=== PATIENT | female | born 1980 | race Caucasian/White ===

== ENCOUNTER → 2017-07-14 15:21 | Outpatient (CLI) | payer OTHER, SELFPAY ==
[2017-07-14 17:01] LABS: Color, Urine Yellow (Yellow); Glucose, Dipstick Normal (Normal); Ketone-Dipstick Negative (Negative); Leukocyte Esterase-Dipstick 100 /ul (Negative); Nitrite-Dipstick Negative (Negative); Occult Blood-Urine 10 /ul (Negative); Protein-Dipstick 15 mg/dl (Negative); Urine Bilirubin Dipstick Negative (Negative); Urine Clarity Clear (Clear); Urine Urobilinogen Normal (Normal)
[2017-07-14 17:10] LABS: Amphetamine Urine VISTA NEGATIVE (<1000 ng/mL); Barbiturate Urine VISTA NEGATIVE (< 200 ng/mL); Benzodiazepine Urine VISTA NEGATIVE (< 200 ng/mL); Cocaine Urine VISTA NEGATIVE (< 300 ng/mL); Ecstacy Urine VISTA NEGATIVE (< 500 ng/mL); Methadone Urine VISTA NEGATIVE (< 300 ng/mL); PCP Urine VISTA NEGATIVE (< 25 ng/mL); THC Urine VISTA NEGATIVE (< 50 ng/mL); Vista UDS pH Range 6
[2017-07-14 17:13] LABS: COTININE Drug Screen Negative (<200 ng/mL)
[2017-07-14 17:35] LABS: Absolute Lymphocyte Count 1.36 X10^3/ul (0.83-4.51); Absolute Neutrophil Count 5.1 X10^3/uL (2.0-7.7); Basophil# 0.01 X10^3/uL; Basophil% 0.1 % (0-1); Eosinophil# 0.04 X10^3/uL; Eosinophils% 0.6 % (0-5); Hematocrit 38.5 % (37-47); Hemoglobin 12.5 g/dl (12.0-15.0); Lymphocyte # 1.36 X10^3/ul (4.0); Lymphocyte % 19.8 % (19-41); Mean Corp Hgb Conc 32.5 g/gl (32-36); Mean Corpuscular Hgb 26.2 pg (27.0-32.0); Mean Corpuscular Volume 80.5 fL (81-99); Mean Platelet Vol. 8.8 fl (6.2-12.0); Monocyte% 5.8 % (0-10); Neutrophil # 5.05 X10^3/uL (2.7-7.7); Neutrophil % 73.6 % (47-70); Platelet Count 218 K/mm3 (150-450); RBC Distribution Width CV 14.7 % (11.6-14.6); RBC Distribution Width SD 43.3 fl (35.1-43.9); Red Blood Count 4.78 M/mm3 (4.2-5.4); White Blood Count 6.9 K/mm3 (4.4-11.0)
[2017-07-14 17:36] LABS: POSITIVE COUNT NO; POSITIVE DIFFERENTIAL NO; POSITIVE MORPHOLOGY NO
[2017-07-14 17:48] LABS: Thyroid Stim Hormone (TSH) 0.63 uIU/mL (0.358-3.74)
[2017-07-14 18:48] LABS: HIV - WCH Non-Reactive (Nonreactive); Rubella IgG 110.8 IU/mL
[2017-07-18 10:29] LABS: HEPATITIS B SURFACE AG Negative (Negative); Hep C Antibodies 0.1 s/co ratio (0.0-0.9)
[2017-07-21 03:55] LABS: Prenatal RPR NONREACTIVE (NONREACTIVE)
== END ==
PROVIDERS: Visit Provider Obstetrics & Gynecology
DX: Z34.81 Encounter for supervision of other normal pregnancy, first trimester (principal)
CPT/HCPCS: 36415; 80307; 81002; 84443; 85025; 86703; 86762; 86803; 87340

== ENCOUNTER → 2017-11-24 14:17 | Outpatient (CLI) | payer OTHER, SELFPAY ==
--- NOTE | 2017-11-24 14:17 | DT_ITS ---
This patient was seen during an EMR downtime November 20, 2017 - November 27, 2017. This patient may have a combination of paper and electronic documentation or all paper documentation. All documentation is viewable within the e-chart portion of [employer] for each patient visit.
[2017-11-27 18:18] LABS: Hematocrit 32.3 % (37-47); Hemoglobin 10.5 g/dl (12.0-15.0); Mean Corp Hgb Conc 32.5 g/gl (32-36); Mean Corpuscular Hgb 28.2 pg (27.0-32.0); Mean Corpuscular Volume 86.8 fL (81-99); Mean Platelet Vol. 8.7 fl (6.2-12.0); Platelet Count 230 K/mm3 (150-450); RBC Distribution Width CV 13.9 % (11.6-14.6); RBC Distribution Width SD 42.5 fl (35.1-43.9); Red Blood Count 3.72 M/mm3 (4.2-5.4); Scan Indicated on CBC? Y/N NO; White Blood Count 9.6 K/mm3 (4.4-11.0)
[2017-11-28 15:58] LABS: Glucose Challenge Gest 1H 50g 108 mg/dL (70-140)
== END ==
PROVIDERS: Visit Provider Obstetrics & Gynecology
DX: Z34.83 Encounter for supervision of other normal pregnancy, third trimester (principal)
CPT/HCPCS: 36415; 82950; 85027; 86850

== ENCOUNTER → 2018-01-19 13:12 | Outpatient (CLI) | payer OTHER, SELFPAY ==
[2018-01-19 15:18] LABS: Group B Strep DNA By PCR POSITIVE (Negative); Probe Check PASS
== END ==
PROVIDERS: PCP Obstetrics & Gynecology; Visit Provider Obstetrics & Gynecology
DX: Z36.85 Encounter for antenatal screening for Streptococcus B (principal)
CPT/HCPCS: 87653

== ENCOUNTER 2018-02-09 16:30 | Inpatient (IN) | payer OTHER, SELFPAY ==
[2018-02-09 17:20] VITALS: BMI 36.5
[2018-02-09 17:27] LABS: Hematocrit 35.1 % (37-47); Hemoglobin 11.6 g/dl (12.0-15.0); Mean Corpuscular Hgb 28.2 pg (27.0-32.0); Mean Corpuscular Volume 85.2 fL (81-99); Mean Platelet Vol. 9.3 fl (6.2-12.0); Platelet Count 174 K/mm3 (150-450); RBC Distribution Width CV 15.1 % (11.6-14.6); RBC Distribution Width SD 47.1 fl (35.1-43.9); Red Blood Count 4.12 M/mm3 (4.2-5.4); White Blood Count 8.7 K/mm3 (4.4-11.0)
[2018-02-09 17:37] LABS: AST(SGOT) 55 U/L (15-37); Alanine Aminotransfer ALT/SGPT 23 U/L (13-56); Creatinine, Serum 0.72 mg/dL (0.55-1.02); EST Glomerular Filtration Rate 98 mL/min (>60); Est Glom Filt Rate - Afr Amer 119 mL/min (>60); Estimated Creatinine Clearance 110.01 ml/min; Uric Acid 4.8 mg/dL (2.6-6.0)
[2018-02-09 18:08] LABS: Scan Indicated on CBC? Y/N NO
[2018-02-09] MEDS: miSOPROStol 25 MCG TABLET PO ×2 (18:17→22:03)
[2018-02-09 18:30] LABS: Protein, Urine (Random) 29.5 mg/dL (<11.9); Protein:Creat Ratio 409 mg/g CRE (0-200)
[2018-02-09 18:47] LABS: Prothrombin Time (Protime)PT. 13.2 SECONDS (11.7-14.9)
[2018-02-09] MEDS: Lactated Ringers 1,000 ML 50 ML IV (19:20)
[2018-02-09] MEDS: Labetalol 200 MG Tablet PO (21:58)
[2018-02-10] VITALS (21 sets, daily range): BP systolic 108–144; BP diastolic 65–98; PULSE 61–92; RESP 16–20; TEMP 36.4–36.7; O2SAT 97–100
[2018-02-10] MEDS: miSOPROStol 25 MCG TABLET PO ×2 (02:33→06:18)
[2018-02-10] MEDS: Cefazolin 2 GM in 0.9% Normal Saline 100 ML IV (07:55)
[2018-02-10] MEDS: Sodium Citrate/Citric Acid 30 ML UDC PO (07:58)
[2018-02-10] MEDS: Oxytocin 30 units/NS 500 ml 30 UNITS/500 ML IV.SOLN 167 UNITS IV (08:13)
[2018-02-10] MEDS: Ondansetron 4 MG/2 ML Vial IV (08:28)
--- NOTE | 2018-02-10 08:54 | PCM.OP.BLANK ---
Operative Report Date of Procedure: 02/10/18 Surgeon: Kurt Rose MD, FACOG [employer] Consultant: Koki Aponte RN; ANUEL Christian Anesthesia: Karen Godinez MD; Luis F Polk CRNA Anesthesia: Spinal with Duramorph Pre-op Diagnosis: Gestational Hypertension, Not Reassuring Heart Tones Post-Op Diagnosis: Gestational Hypertension, Not Reassuring Heart Tones, Cord Entanglement Procedure: Emergency Primary Low Transverse Cervical Caesarean Section Findings: Viable female with Apgars of 9/10 in occiput anterior presentation with clear amniotic fluid and normal three-vessel placenta. Long umbilical cord. Multiple loops of cord around the neck, approximately 3. Cord around the legs and body. Indication: This is a 37-year-old who presents for induction for gestational hypertension. She was given Cytotec during the night for an unfavorable cervix and this morning artificial rupture of membranes was performed. She was approximately 2-3 cm dilated and 50% effaced with -2--3 station at the time of rupture. After rupture of membranes and placement of intrauterine pressure catheter, multiple late decelerations were encountered. These decelerations were extremely deep and showed no evidence of abating. Given this it was decided to proceed with primary section for nonreassuring heart tones. care has otherwise been uneventful and she is on labetalol twice daily for blood pressure control. The patient and her have been counseled regarding the risk and indications of this procedure including the possibility of bleeding infection and injury to surrounding structures such as bowel bladder. All questions were answered. Procedure: Patient was taken to the operating room where heart tones were noted to be in the 120s and 130s. It was felt that there was adequate time to place spinal anesthesia. After spinal anesthesia was placed, the patient was prepped and draped in usual sterile fashion and a Hess catheter was placed. The abdomen was entered through a Pfannenstiel incision and peritoneum was entered bluntly. After developing a bladder flap on the lower uterine segment a low transverse incision was made on the uterus and head was easily delivered onto the operative field the nose mouth and oropharynx were bulb suctioned. Subsequently a viable female infant was born with Apgars of 9/10. The was noted to cry move all extremities vigorously on the operative field. The umbilical cord was doubly clamped and ligated and infant handed to the nursery personnel who were present for the delivery. Placenta was delivered and noted to be 3 vessels and normal with cord entanglement as noted above. Uterus was exteriorized and remaining placental tissue was removed. The uterus was then closed in 2 layers first with running locked 0 Vicryl suture followed by a second imbricating layer with 0 Vicryl suture. 0 Vicryl suture was then used in a horizontal mattress interrupted fashion to affect final hemostasis of the uterine incision line. Normal fallopian tubes and ovaries were visualized and the uterus was returned to the pelvis. Hemostasis was noted and rectus abdominis muscles were reapproximated in the midline with interrupted Number 0 Vicryl suture in a horizontal mattress fashion. Fascia was closed with running Number 1 PDS Strata fix suture. Subcutaneous tissue was irrigated with copious amouts of saline solution and then closed with running 3-0 Vicryl suture. Skin was closed with 4-0 monocryl suture in a running subcuticular fashion. Steri strips, telfa, and tape were placed across the incision. Time from decision to proceed with section to delivery was approximately 15 minutes. The patient tolerated the procedure well and was taken to the recovery room in satisfactory condition. Sponge, needle, and instrument counts were all reportedly correct. EBL was less than 500 cc. Ancef 2 gms IV was given prior to the procedure. Spicemen to Pathology: None Complications: None
--- NOTE | 2018-02-10 09:06 | PCM.DCCSEC ---
Discharge Diet: No Restrictions Discharge Activity: May not drive while taking narcotic pain medications., May Shower, May Take a Tub Bath May resume sexual activity in: 4-6 weeks Lifting Restrictions: 20 pounds Additional Activity Instructions:: Nothing in the vagina for 4-6 weeks. You may return to work/school in 6 weeks. Call your doctor if your incision/area has: Continuous Slow Oozing, Sudden Increased Bleeding, Increased Pain/ Swelling, Increased Redness, Foul Smelling Discharge Call your doctor if you observe: Fever of 101 or Higher, Inability to urinate, Inability to have a bowel movement, Using more than one pad per hour Additional Instructions: If you experience any of the following, contact your healthcare provider. Bleeding that soaks a pad every hour for 2 hours Unrelieved incision or abdominal pain Swelling, redness, discharge or bleeding from your incision or episiotomy site Your incision begins to separate Problems urinating (including inability to urinate or burning while urinating). Visual changes Severe headache Flu-like symptoms Pain or redness in one of both of your breasts Pain, warmth, tenderness or swelling in your legs, especially the calf area Frequent nausea and vomiting Symptoms of depression or anxiety If you experience any of the following, call 911 or go to the nearest Emergency Room. Chest pain Problems breathing Seizure activity Partial or complete paralysis of a body part, slurred speech, weakness or drooping of the face, or a sudden inability to walk or hold your balance Allergies/Adverse Reactions: Allergies No Known Allergies Allergy (Verified 02/09/18 17:21) Medications to take at Discharge Ferrous Sulfate [Iron] 1 tab PO BID 02/09/18 Labetalol [Trandate (Beta Teagan)] 200 mg PO BID 02/09/18 Vits [Prenatabs FA ] 1 tab PO DAILY 02/09/18 Docusate Sodium [Colace] 100 mg PO BID PRN PRN #60 cap 02/10/18 Oxycodone [Oxyir] 5 mg PO Q6H PRN PRN 7 Days #20 tab 02/10/18 The following prescriptions were given: Oxycodone [Oxyir] 5 mg PO Q6H PRN PRN 7 Days #20 tab PRN Reason: Severe Pain (-03/28) Docusate Sodium [Colace] 100 mg PO BID PRN PRN #60 cap PRN Reason: Constipation Follow-Up: Call to make an appointment with your doctor for an incision check in 1-2 weeks. You will also need a 6 week post- follow up appointment. Test results from this visit will be discussed in further detail at your follow-up appointment, if applicable. Please Follow Up With: Mike Daley MD When: Call to make an appointment for an incision check in 2 weeks. Primary Care Physician: Andriy Maria MD [Primary Care Provider] -
[2018-02-10] MEDS: Lactated Ringers 1,000 ML 999 ML IV (11:10)
[2018-02-10] MEDS: Lactated Ringers 1,000 ML 100 ML IV ×2 (11:19→20:56)
[2018-02-10] MEDS: Labetalol 200 MG Tablet PO ×2 (12:32→21:00)
[2018-02-10] MEDS: Ketorolac 30 MG/ML Syringe IV ×2 (13:31→17:46)
[2018-02-10] MEDS: Cefazolin 1 GM/50 ML BAG IV (16:14)
[2018-02-10] MEDS: Ondansetron ODT 4 MG Tablet PO (17:46)
[2018-02-11] VITALS (9 sets, daily range): BP systolic 103–139; BP diastolic 57–88; PULSE 64–80; RESP 16–18; TEMP 36.2–36.8; O2SAT 97–100
[2018-02-11] MEDS: Ketorolac 30 MG/ML Syringe IV ×4 (01:08→18:07)
[2018-02-11] MEDS: Cefazolin 1 GM/50 ML BAG IV (01:08)
[2018-02-11 05:58] LABS: Hematocrit 29.8 % (37-47); Mean Corp Hgb Conc 33.6 g/gl (32-36); Mean Corpuscular Volume 86.4 fL (81-99); Mean Platelet Vol. 8.8 fl (6.2-12.0); Platelet Count 155 K/mm3 (150-450); RBC Distribution Width SD 45.3 fl (35.1-43.9); Red Blood Count 3.45 M/mm3 (4.2-5.4); White Blood Count 10.3 K/mm3 (4.4-11.0)
[2018-02-11 06:07] LABS: Scan Indicated on CBC? Y/N NO
--- NOTE | 2018-02-11 11:07 | PCM.PN.OB ---
Subjective: Patient without complaints. Tolerating diet well. Positive flatus. Breast-feeding going well. Pain well controlled. - Physical Exam Vital Signs AF, VSS Temp Pulse Resp BP Pulse Ox 97.3 F L 78 16 108/66 97 02/11/18 08:00 02/11/18 08:00 02/11/18 08:00 02/11/18 08:00 02/11/18 08:00 Oxygen Delivery Method Room Air Weight: 240 lb Body Mass Index (BMI) 36.5 Intake and Output for Last 24 Hours 02/09/18 02/10/18 02/11/18 23:59 23:59 23:59 Intake Total 3940 / 3940 1491 / 1491 Output Total 750 / 750 1300 / 1300 Balance 3190 / 3190 191 / 191 Laboratory Tests Past 24 Hrs 02/11/18 05:36 WBC 10.3 RBC 3.45 L Hgb 10.0 L Hct 29.8 L MCV 86.4 MCH 29.0 MCHC 33.6 RDW 15.0 H RDW Differential 45.3 H Plt Count 155 MPV 8.8 Wound is clean, dry, intact. Good urine output. Hemoglobin okay. Medical Necessity - Tobacco Use Smoking Status: Never smoker Assessment/Plan Doing well status post op day #1 for primary . Continuing present care.
[2018-02-11] MEDS: 0.9% Saline Lock 10 ML Syringe IV ×2 (11:57→18:07)
[2018-02-11] MEDS: Labetalol 200 MG Tablet PO ×2 (11:58→22:10)
[2018-02-12] MEDS: Ketorolac 30 MG/ML Syringe IV ×2 (00:09→06:33)
[2018-02-12] MEDS: 0.9% Saline Lock 10 ML Syringe IV ×2 (00:09→06:34)
[2018-02-12 03:30] VITALS: BP 148/89; PULSE 84; RESP 16; TEMP 36.3
--- NOTE | 2018-02-12 07:41 | PCM.PN.OB ---
Subjective: Patient without complaints. Tolerating diet well. Positive flatus. Pain well controlled. Ready to go home. - Physical Exam Vital Signs Temp Pulse Resp BP Pulse Ox 97.3 F L 84 16 148/89 H 97 02/12/18 03:30 02/12/18 03:30 02/12/18 03:30 02/12/18 03:30 02/11/18 13:31 Oxygen Delivery Method Room Air Weight: 240 lb Body Mass Index (BMI) 36.5 Intake and Output for Last 24 Hours 02/10/18 02/11/18 02/12/18 23:59 23:59 23:59 Intake Total 3940 / 3940 1491 / 1491 Output Total 750 / 750 2300 / 2300 Balance 3190 / 3190 -809 / -809 Wound is clean, dry, intact. Good urine output. Medical Necessity - Tobacco Use Smoking Status: Never smoker Assessment/Plan Doing well postoperative day #2 status post primary section. Will release to home with routine instructions.
[2018-02-12 08:50] VITALS: BP 143/91; PULSE 74; RESP 16; TEMP 36.5; O2SAT 98
[2018-02-12] MEDS: Labetalol 200 MG Tablet PO ×2 (09:49→18:08)
[2018-02-12] MEDS: Senna/Docusate Sodium 1 Tablet PO (13:14)
[2018-02-12 13:23] VITALS: BP 135/85; PULSE 87; RESP 16; TEMP 36.7; O2SAT 96
[2018-02-12] MEDS: oxyCODONE 5 MG Tablet PO (16:29)
[2018-02-12 16:31] VITALS: BP 155/99; PULSE 75; RESP 16; TEMP 36.7; O2SAT 98
--- NOTE | 2018-02-12 17:31 | NURSING ---
1635 This RN called to pt room per ACole RN and made aware pt c/o generalized chest discomfort. Denies SOB but states pain is also occas. in back. VS: 177/102, 98.1 temp, pulse 73, resp 20, pulse ox 98%. Pt uncrossed legs and rechecked BP was 155/99. At 1647, cont. to report discomfort but states it is possibly getting better. BP 162/98 SFR, pulse ox 98%, resp 20. Dr. Rose made aware and will cancel discharge with continued BP monitoring overnight. Pt. denies vision changes and headache, stating pain is still in back and feels like acid indigestion or reflux. 1652 BP 160/92 and at 1711 BP is 159/95. Dr. Rose declines HTN protocol at this time but will see how her BP's trend this evening.
[2018-02-12] MEDS: Ketorolac 30 MG/ML Syringe IM (18:07)
[2018-02-12] MEDS: Famotidine 20 MG Tablet PO (18:08)
--- NOTE | 2018-02-12 19:32 | NURSING ---
Pt. blood pressure checks 172/100 then 165/99. Dr. Rose in to see pt. ordered labetalol time adjustment, pepcid, and IM toradol. Pt. blood pressure checks after interventions were 145/88 and 136/84. Pt. states her pain is down to a 2 and she is feeling much better.
[2018-02-12 19:59] VITALS: BP 143/84; PULSE 87; RESP 18; TEMP 36.6; O2SAT 96
[2018-02-13 02:31] VITALS: BP 132/93; PULSE 82; RESP 18; TEMP 36.6; O2SAT 97
[2018-02-13] MEDS: Ibuprofen 600 MG Tablet PO (02:36)
[2018-02-13] MEDS: oxyCODONE 5 MG Tablet PO (04:01)
[2018-02-13] MEDS: Labetalol 200 MG Tablet PO (06:16)
[2018-02-13 06:17] VITALS: BP 129/85
[2018-02-13 08:00] VITALS: BP 147/91; PULSE 79; RESP 16; TEMP 36.8
--- NOTE | 2018-02-13 08:48 | PCM.PN.OB ---
Subjective: Patient without complaints. Tolerating diet well. Pain well controlled after restarting NSAIDs. No blood pressure issues overnight. - Physical Exam Vital Signs Temp Pulse Resp BP Pulse Ox 97.9 F 82 18 129/85 H 97 02/13/18 02:31 02/13/18 02:31 02/13/18 02:31 02/13/18 06:17 02/13/18 02:31 Oxygen Delivery Method Room Air Weight: 240 lb Body Mass Index (BMI) 36.5 Intake and Output for Last 24 Hours 02/11/18 02/12/18 02/13/18 23:59 23:59 23:59 Intake Total 1491 / 1491 Output Total 2300 / 2300 Balance -809 / -809 Medical Necessity - Tobacco Use Smoking Status: Never smoker Assessment/Plan Doing well postoperative day #3 status post primary section. Will release to home with routine instructions. Continuing labetalol as prior to admission.
--- NOTE | 2018-02-13 08:50 | PCM.DC.BLA ---
Discharge Summary Date of Admission: 02/09/18 Date of Discharge: 02/13/18 Summary: Admission diagnosis: Gestational Hypertension Discharge diagnosis: Gestational Hypertension, Not Reassuring Heart Tones, Cord Entanglement Procedure: Emergency Primary Low Transverse Cervical Caesarean Section Findings: Viable female infant with Apgars of 9/10 in occiput anterior presentation with clear amniotic fluid and normal three-vessel placenta. Long umbilical cord. Multiple loops of cord around the neck, approximately 3. Cord around the legs and body. History of present illness: This is a 37-year-old who presented for induction for gestational hypertension. She was given Cytotec for an unfavorable cervix and artificial rupture of membranes was performed. She was approximately 2-3 cm dilated and 50% effaced with -2--3 station at the time of rupture. After rupture of membranes and placement of intrauterine pressure catheter, multiple late decelerations were encountered. These decelerations were extremely deep and showed no evidence of abating. Given this it was decided to proceed with primary section for nonreassuring heart tones. care has otherwise been uneventful and she is on labetalol twice daily for blood pressure control. Physical exam: Unremarkable except as above. Hospital course: Patient was admitted and had the above procedure performed. Postoperatively the patient did well demonstrating a stable hemoglobin on postoperative day #1 as well as bowel function. It was felt that she was ready for discharge on postoperative day #2 but she began having blood pressure elevations. It was felt that this was due to the patient not taking any pain medications for nearly 12 hours. She was observed overnight and after nonsteroidal medications were started blood pressure were normal with her prescribed dose of labetalol. On postoperative day #3 was felt that she was ready for discharge. Discharge instructions and follow-up: Patient was instructed not to drive for several days, not put anything the vagina for a month, to call the office for an appointment in 2 weeks and 6 weeks. She was also given a prescription for oxycodone and Colace to be used as needed and will be continuing her labetalol 200 mg twice daily for at least 4 weeks .
== END 2018-02-13 09:00 | disposition home or self-care (01) | DRG 766 ==
PROVIDERS: Admitting Provider Obstetrics & Gynecology; Family Provider Family Medicine; PCP Family Medicine; Visit Provider Obstetrics & Gynecology
DX: O13.4 Gestational [pregnancy-induced] hypertension without significant proteinuria, complicating childbirth (principal); Z3A.39 39 weeks gestation of pregnancy; Z37.0 Single live birth; O76 Abnormality in fetal heart rate and rhythm complicating labor and delivery; O69.81X0 Labor and delivery complicated by cord around neck, without compression, not applicable or unspecified
CPT/HCPCS: 59025; 59050; 82565; 82570; 84156; 84450; 84460; 84550; 85027; 85461; 85610; 85730; 86850; 86900; 90384; 99218; J7120; A4216; G0378; J0290; J2405; J2790

== ENCOUNTER → 2018-05-18 16:16 | Outpatient (CLI) | payer OTHER, SELFPAY ==
--- NOTE | 2018-05-18 16:20 | RAD_ITS ---
STUDY: X-RAY - RIGHT WRIST REASON FOR EXAM: Female, 37 years old. Pain TECHNIQUE: 3 view(s) of the wrist were obtained. COMPARISON: None. FINDINGS: Normal visualized distal radius and ulna. Normal radiocarpal articulation. Normal distal radioulnar articulation. Normal carpal bones. Normal carpal articulations. Normal carpometacarpal articulation of the thumb. Normal second through fifth carpometacarpal articulations. Normal visualized metacarpal bones. The soft tissue structures are unremarkable. RAD/Wrist min 3 Views IMPRESSION: Normal x-ray examination of the wrist. Electronically Signed: Benedict Gaona DO at 9:36 EST Tel [phone], Service support ,
--- OUTSIDE RECORDS SUMMARY | 2018-07-13 16:11 | XMS RPT_ITS ---
:1980 Author Organization OHIP Care Team Providers Name Role Phone Mike Daley Attending Unavailable Andriy Maria Primary Care Unavailable Mike Daley Attending Unavailable Mike Daley Attending Unavailable Angeline Morton Attending Unavailable Kurt Rose Admitting Unavailable Kurt Rose Attending Unavailable Kurt Rose Referring Unavailable Andriy Maria Primary Care Unavailable Andriy Maria Attending Unavailable Andriy Maria Referring Unavailable Andriy Maria Primary Care Unavailable PROBLEMS PROBLEMS DATE TYPE CONDITION / CODE ATTENDING STATUS SOURCE 02/13/2018 Unknown G89.18 - Other acute Kurt Rose Active [place] post[facility] / G89.18(ICD-10) Hospital Repository 01/19/2018 Unknown Z36.85 - Encounter SeleneKorin for [facility] Community screening for Hospital Streptococcus B / Repository Z36.85(ICD-10) 12/13/2017 Unknown Z34.83 - Encounter Mike Daley Active [facility] for supervision of Community other normal Hospital , third Repository trimester / Z34.83(ICD-10) 07/17/2017 Unknown Z34.81 - Encounter SealMike kimball Active [facility] for supervision of Community other normal Hospital , first Repository trimester / Z34.81(ICD-10) 06/30/2017 Unknown Z32.01 - Encounter SealMike kimball for test, [facility] result positive / Hospital Z32.01(ICD-10) Repository 06/30/2017 Unknown Z11.3 - Encounter Mike Daley for screening for Community infections with a Hospital predominantly sexual Repository mode of transmission / Z11.3(ICD-10) PROCEDURES PROCEDURES No Procedure Records FoundRESULTS RESULTS WRIST MIN 3 VIEWS Observed: 05/18/2018 Status: F Source: [facility] 4:20 PM [facility] HOSPITAL REPOSITORY [facility] Imaging Services [address] [place] [address] Wrist min 3 Views MR#: [id number] Acct: [id number] Name: ANNETTE VILLALOBOS Rep #: [id number] : 1980 F 37 From: Benedict Gaona DO PCP: Andriy Maria MD Status: REG CLI Study: Wrist min 3 Views Date of Exam: 05/18/18 Exam# [id number] Ordering Dr: Andriy Maria MD STUDY: X-RAY - RIGHT WRIST REASON FOR EXAM: Female, 37 years old. Pain TECHNIQUE: 3 view(s) of the wrist were obtained. COMPARISON: None. FINDINGS: Normal visualized distal radius and ulna. Normal radiocarpal articulation. Normal distal radioulnar articulation. Normal carpal bones. Normal carpal articulations. Normal carpometacarpal articulation of the thumb. Normal second through fifth carpometacarpal articulations. Normal visualized metacarpal bones. The soft tissue structures are unremarkable. RAD/Wrist min 3 Views IMPRESSION: Normal x-ray examination of the wrist. Electronically Signed: Benedict Gaona DO at 9:36 EST Tel [phone], Service support , CC: Andriy Maria MD Dentistry Teacher: Signed DISCHARGE SUMMARY Observed: 02/13/2018 Status: F Source: IMLER 8:54 AM [facility] REPOSITORY [facility] Medical Records Department [address] [place] [address] Discharge Summary 02/13/18 0850 MR#: [id number] Acct: [id number] Name: ANNETTE VILLALOBOS Rep #: [id number] : 1980 37 From: Kurt Rose MD PCP: Andriy Maria MD Status: ADM IN Location: [id number] Discharge Summary Date of Admission: 02/09/18 Date of Discharge: 02/13/18 Summary: Admission diagnosis: Gestational Hypertension Discharge diagnosis: Gestational Hypertension, Not Reassuring Heart Tones, Cord Entanglement Procedure: Emergency Primary Low Transverse Cervical Caesarean Section Findings: Viable female with Apgars of 9/10 in occiput anterior presentation with clear amniotic fluid and normal three-vessel placenta. Long umbilical cord. Multiple loops of cord around the neck, approximately 3. Cord around the legs and body. History of present illness: This is a 37-year-old who presented for induction for gestational hypertension. She was given Cytotec for an unfavorable cervix and artificial rupture of membranes was performed. She was approximately 2-3 cm dilated and 50% effaced with -2--3 station at the time of rupture. After rupture of membranes and placement of intrauterine pressure catheter, multiple late decelerations were encountered. These decelerations were extremely deep and showed no evidence of abating. Given this it was decided to proceed with primary section for nonreassuring heart tones. care has otherwise been uneventful and she is on labetalol twice daily for blood pressure control. Physical exam: Unremarkable except as above. Hospital course: Patient was admitted and had the above procedure performed. Postoperatively the patient did well demonstrating a stable hemoglobin on postoperative day #1 as well as bowel function. It was felt that she was ready for discharge on postoperative day #2 but she began having blood pressure elevations. It was felt that this was due to the patient not taking any pain medications for nearly 12 hours. She was observed overnight and after nonsteroidal medications were started blood pressure were normal with her prescribed dose of labetalol. On postoperative day #3 was felt that she was ready for discharge. Discharge instructions and follow-up: Patient was instructed not to drive for several days, not put anything the vagina for a month, to call the office for an appointment in 2 weeks and 6 weeks. She was also given a prescription for oxycodone and Colace to be used as needed and will be continuing her labetalol 200 mg twice daily for at least 4 weeks . 02/13/18 0854 <Electronically signed by Kurt Rose MD> Date Kurt Rose MD [facility] Signature (if applicable): Date CC: Kurt Rose MD; Andriy Maria MD Signed CBC-COMPLETE BLOOD CNT Collected: 02/11/2018 Status: F Source: [facility] NO DIFF 5:36 AM [facility] REPOSITORY Order Comment: Comments: Day #1 Reason for Laboratory Test TYPE CODE TESTS RESULT OUT OF RANGE REFERENCE UNITS LAB L100.1000 4.4-11.0 K/mm3 Normal WBC 10.3 LAB L100.1200 4.2-5.4 M/mm3 Low RBC 3.45 LAB L100.1300 12.0-15.0 g/dl Low HGB 10.0 LAB L100.1400 37-47 % Low HCT 29.8 LAB L100.1500 81-99 fL Normal MCV 86.4 LAB L100.1600 27.0-32.0 pg Normal MCH 29.0 LAB L100.1700 32-36 g/gl Normal MCHC 33.6 LAB L100.1810 11.6-14.6 % High RDW CV 15.0 LAB L100.1820 35.1-43.9 fl High RDW SD 45.3 LAB L100.1900 150-450 K/mm3 Normal PLT 155 LAB L100.2000 6.2-12.0 fl Normal MPV 8.8 Performed By: #### L100.0500 #### [facility] [address] [place], [address] RH NEGATIVE MOM Collected: 02/10/2018 Status: F Source: [facility] WORKUP 10:30 AM [facility] REPOSITORY Order Comment: Baby's Full Name ANNETTE VILLALOBOS Baby's Bracelet # [id number] Baby's MR # [id number] TYPE CODE TESTS RESULT OUT OF RANGE REFERENCE UNITS LAB B101.0425 B Normal MOM'S ABO NEGATIVE RH LAB B101.0450 Normal MOM'S ABS NEGATIVE LAB B101.0500 NEGATIVE Normal NEGATIVE SCREEN LAB B101.0950 O Normal BABY'S POSITIVE ABO RH LAB B101.1000 NEGATIVE Normal BABY'S NEGATIVE NAYELI Performed By: #### B101.0300 #### [facility] [address] [place], [address] RHOGAM Collected: 02/10/2018 Status: F Source: IMLER 10:30 AM [facility] REPOSITORY TYPE CODE TESTS RESULT OUT OF REFERENCE UNITS RANGE LAB U100.2500 [id number] TRANSFUSED PRODUCT: Rho(D) Immune Globulin RhoGam COUNT: 1 Performed By: #### U100.2500 #### [facility] - refer to report for specific site DISCHARGE INSTRUCTION Observed: 02/10/2018 Status: F Source: IMLER 9:07 AM [facility] REPOSITORY [facility] Medical Records Department [address] [place] [address] Instructions for Home/Discharge Instructions 02/10/18 0906 MR#: [id number] Acct: [id number] Name: GRISELDAANNETTE L Rep #: [id number] : 1980 37 From: Kurt Rose MD PCP: Andriy Maria MD Status: ADM IN Discharge Diet: No Restrictions Discharge Activity: May not drive while taking narcotic pain medications., May Shower, May Take a Tub Bath May resume sexual activity in: 4-6 weeks Lifting Restrictions: 20 pounds Additional Activity Instructions:: Nothing in the vagina for 4-6 weeks. You may return to work/school in 6 weeks. Call your doctor if your incision/area has: Continuous Slow Oozing, Sudden Increased Bleeding, Increased Pain/ Swelling, Increased Redness, Foul Smelling Discharge Call your doctor if you observe: Fever of 101 or Higher, Inability to urinate, Inability to have a bowel movement, Using more than one pad per hour Additional Instructions: If you experience any of the following, contact your healthcare provider. * Bleeding that soaks a pad every hour for 2 hours * Unrelieved incision or abdominal pain * Swelling, redness, discharge or bleeding from your incision or episiotomy site * Your incision begins to separate * Problems urinating (including inability to urinate or burning while urinating). * Visual changes * Severe headache * Flu-like symptoms * Pain or redness in one of both of your breasts * Pain, warmth, tenderness or swelling in your legs, especially the calf area * Frequent nausea and vomiting * Symptoms of depression or anxiety If you experience any of the following, call 911 or go to the nearest Emergency Room. * Chest pain * Problems breathing * Seizure activity * Partial or complete paralysis of a body part, slurred speech, weakness or drooping of the face, or a sudden inability to walk or hold your balance Allergies/Adverse Reactions: Allergies No Known Allergies Allergy (Verified 02/09/18 17:21) Medications to take at Discharge Ferrous Sulfate [Iron] 1 tab PO BID 02/09/18 Labetalol [Trandate (Beta Teagan)] 200 mg PO BID 02/09/18 Vits [Prenatabs FA ] 1 tab PO DAILY 02/09/18 Docusate Sodium [Colace] 100 mg PO BID PRN PRN #60 cap 02/10/18 Oxycodone [Oxyir] 5 mg PO Q6H PRN PRN 7 Days #20 tab 02/10/18 The following prescriptions were given: Oxycodone [Oxyir] 5 mg PO Q6H PRN PRN 7 Days #20 tab PRN Reason: Severe Pain (-03/28) Docusate Sodium [Colace] 100 mg PO BID PRN PRN #60 cap PRN Reason: Constipation Follow-Up: Call to make an appointment with your doctor for an incision check in 1-2 weeks. You will also need a 6 week post- follow up appointment. Test results from this visit will be discussed in further detail at your follow-up appointment, if applicable. Please Follow Up With: Mike Daley MD When: Call to make an appointment for an incision check in 2 weeks. Primary Care Physician: Andriy Maria MD [Primary Care Provider] - 02/10/18 0907 <Electronically signed by Kurt Rose MD> Date Kurt Rose MD CC: Andriy Maria MD OPERATIVE REPORT Observed: 02/10/2018 Status: F Source: IMLER 9:06 AM [facility] REPOSITORY [facility] Medical Records Department [address] [place] [address] Operative Report 02/10/18 0854 MR#: [id number] Acct: [id number] Name: ANNETTE VILLALOBOS Rep #: [id number] : 1980 37 From: Kurt Rose MD PCP: Andriy Maria MD Status: ADM IN [facility] Report Date of Procedure: 02/10/18 Surgeon: Kurt Rose MD, FACOG Mailing Clerk: Koki Aponte RN; ANUEL Christian Anesthesia: Karen Godinez MD; Luis F Polk CRNA Anesthesia: Spinal with Duramorph Pre-op Diagnosis: Gestational Hypertension, Not Reassuring Heart Tones Post-Op Diagnosis: Gestational Hypertension, Not Reassuring Heart Tones, Cord Entanglement Procedure: Emergency Primary Low Transverse Cervical Caesarean Section Findings: Viable female with Apgars of 9/10 in occiput anterior presentation with clear amniotic fluid and normal three-vessel placenta. Long umbilical cord. Multiple loops of cord around the neck, approximately 3. Cord around the legs and body. Indication: This is a 37-year-old who presents for induction for gestational hypertension. She was given Cytotec during the night for an unfavorable cervix and this morning artificial rupture of membranes was performed. She was approximately 2-3 cm dilated and 50% effaced with -2--3 station at the time of rupture. After rupture of membranes and placement of intrauterine pressure catheter, multiple late decelerations were encountered. These decelerations were extremely deep and showed no evidence of abating. Given this it was decided to proceed with primary section for nonreassuring heart tones. care has otherwise been uneventful and she is on labetalol twice daily for blood pressure control. The patient and her have been counseled regarding the risk and indications of this procedure including the possibility of bleeding infection and injury to surrounding structures such as bowel bladder. All questions were answered. Procedure: Patient was taken to the operating room where heart tones were noted to be in the 120s and 130s. It was felt that there was adequate time to place spinal anesthesia. After spinal anesthesia was placed, the patient was prepped and draped in usual sterile fashion and a Hess catheter was placed. The abdomen was entered through a Pfannenstiel incision and peritoneum was entered bluntly. After developing a bladder flap on the lower uterine segment a low transverse incision was made on the uterus and head was easily delivered onto the operative field the nose mouth and oropharynx were bulb suctioned. Subsequently a viable female infant was born with Apgars of 9/10. The was noted to cry move all extremities vigorously on the operative field. The umbilical cord was doubly clamped and ligated and infant handed to the nursery personnel who were present for the delivery. Placenta was delivered and noted to be 3 vessels and normal with cord entanglement as noted above. Uterus was exteriorized and remaining placental tissue was removed. The uterus was then closed in 2 layers first with running locked 0 Vicryl suture followed by a second imbricating layer with 0 Vicryl suture. 0 Vicryl suture was then used in a horizontal mattress interrupted fashion to affect final hemostasis of the uterine incision line. Normal fallopian tubes and ovaries were visualized and the uterus was returned to the pelvis. Hemostasis was noted and rectus abdominis muscles were reapproximated in the midline with interrupted Number 0 Vicryl suture in a horizontal mattress fashion. Fascia was closed with running Number 1 PDS Strata fix suture. Subcutaneous tissue was irrigated with copious amouts of saline solution and then closed with running 3-0 Vicryl suture. Skin was closed with 4-0 monocryl suture in a running subcuticular fashion. Steri strips, telfa, and tape were placed across the incision. Time from decision to proceed with section to delivery was approximately 15 minutes. The patient tolerated the procedure well and was taken to the recovery room in satisfactory condition. Sponge, needle, and instrument counts were all reportedly correct. EBL was less than 500 cc. Ancef 2 gms IV was given prior to the procedure. Spicemen to Pathology: None Complications: None 02/10/18 0906 <Electronically signed by Kurt Rose MD> Date Kurt Rose MD CC: Kurt Rose MD; Andriy Maria MD Signed PROTEIN+CREATININE Collected: Status: F Source: [facility] RATIO,URINE 02/09/2018 5:54 PM [facility] REPOSITORY TYPE CODE TESTS RESULT OUT OF RANGE REFERENCE UNITS LAB L501.1200 NO RANGE EST. mg/dL Normal UR CREAT 72.10 LAB L501.1930 <11.9 mg/dL High 29.5 PROTEIN,UR.R AN. LAB L501.1940 0-200 mg/g CRE High PROT:CRE 409 RATIO Performed By: #### L501.0900 #### [facility] [address] [place] [address]. [place], [address] SERUM CREATININE AND Collected: 02/09/2018 Status: F Source: [facility] GFR 5:00 PM [facility] REPOSITORY TYPE CODE TESTS RESULT OUT OF RANGE REFERENCE UNITS LAB L501.1100 0.55-1.02 mg/dL Normal 0.72 CREAT,SERUM Result Comment: The validity of the calculated GFR AND GFRAA in patients over 70 years has not been determined. Clinical correlation is essential. LAB L501.1110 >60 mL/min Normal EST GFR 98 Result Comment: Non- GFR Calc LAB L501.1115 >60 mL/min Normal EST GFR - AA 119 Result Comment: GFR Calc LAB L501.1255 ml/min Normal Estimated CRCL 110.01 Performed By: #### L501.1105, L501.1400, L501.4100, L501.4405 #### [facility] [address] [place], [address] URIC ACID Collected: 02/09/2018 Status: F Source: [facility] 5:00 PM [facility] REPOSITORY TYPE CODE TESTS RESULT OUT OF RANGE REFERENCE UNITS LAB L501.1400 2.6-6.0 mg/dL Normal URIC 4.8 Result Comment: The drugs N-Acetylcysteine and Metamizole may falsely depress this assay. Performed By: #### L501.1105, L501.1400, L501.4100, L501.4405 #### [facility] [address] [place], [address] AST(SGOT) Collected: 02/09/2018 Status: F Source: [facility] 5:00 PM [facility] REPOSITORY TYPE CODE TESTS RESULT OUT OF RANGE REFERENCE UNITS LAB L501.4100 15-37 U/L High AST 55 Performed By: #### L501.1105, L501.1400, L501.4100, L501.4405 #### [facility] [address] [place], [address] ALANINE AMINOTRANSFERAS Collected: 02/09/2018 Status: F Source: [facility] (SGPT) 5:00 PM [facility] REPOSITORY TYPE CODE TESTS RESULT OUT OF RANGE REFERENCE UNITS LAB L501.4405 13-56 U/L Normal ALT 23 Performed By: #### L501.1105, L501.1400, L501.4100, L501.4405 #### [facility] [address] [place], [address] CBC-COMPLETE BLOOD CNT Collected: 02/09/2018 Status: F Source: [facility] NO DIFF 5:00 PM [facility] REPOSITORY TYPE CODE TESTS RESULT OUT OF RANGE REFERENCE UNITS LAB L100.1000 4.4-11.0 K/mm3 Normal WBC 8.7 LAB L100.1200 4.2-5.4 M/mm3 Low RBC 4.12 LAB L100.1300 12.0-15.0 g/dl Low HGB 11.6 LAB L100.1400 37-47 % Low HCT 35.1 LAB L100.1500 81-99 fL Normal MCV 85.2 LAB L100.1600 27.0-32.0 pg Normal MCH 28.2 LAB L100.1700 32-36 g/gl Normal MCHC 33.0 LAB L100.1810 11.6-14.6 % High RDW CV 15.1 LAB L100.1820 35.1-43.9 fl High RDW SD 47.1 LAB L100.1900 150-450 K/mm3 Normal PLT 174 LAB L100.2000 6.2-12.0 fl Normal MPV 9.3 Performed By: #### L100.0500 #### [facility] [address] [place], [place], [id number] TYPE AND SCREEN Collected: 02/09/2018 Status: F Source: IMLER 5:00 PM [facility] REPOSITORY Order Comment: Reason for Type AND Screen/Red Cells: ROUTINE TYPE CODE TESTS RESULT OUT OF RANGE REFERENCE UNITS LAB B10.0800 B Normal BLOOD TYPE GEL NEGATIVE LAB B100.4000 Normal Antibody NEGATIVE Screen Performed By: #### B101.7450 #### [facility] [address] [place], [place], [id number] PROTHROMBIN TIME W/INR Collected: 02/09/2018 Status: F Source: IMLER 5:00 PM [facility] REPOSITORY TYPE CODE TESTS RESULT OUT OF RANGE REFERENCE UNITS LAB L300.4150 11.7-14.9 SECONDS Normal PROTIME 13.2 LAB L300.4200 Normal INR 1.0 Performed By: #### L300.3900, L300.4310 #### [facility] [address] [place], [place], [id number] PARTIAL THROMBOPLAST Collected: 02/09/2018 Status: F Source: IMLER TIME 5:00 PM [facility] REPOSITORY TYPE CODE TESTS RESULT OUT OF RANGE REFERENCE UNITS LAB L300.4310 24.1-36.2 Seconds Normal PTT 26.0 Performed By: #### L300.3900, L300.4310 #### [facility] [address] [place], [address] GROUP B STREP DNA Collected: 01/19/2018 Status: F Source: [facility] BY PCR 11:50 AM [facility] REPOSITORY Order Comment: Source: Vaginal-Rectal TYPE CODE TESTS RESULT OUT OF REFERENCE UNITS RANGE LAB L8200.0100 Negative High GBS TEST POSITIVE RESULT Result Comment: Penicillin is the recommended antibiotic for the treatment of Group B Streptococcal disease. In case of penicillin allergy, susceptibility testing for Clindamycin and Erythromycin is suggested by request. Performed By: #### L8200.0000 #### [facility] [place], [address] DOWNTIME REPORT Observed: 12/07/2017 Status: F Source: [facility] 2:46 PM [facility] REPOSITORY [facility] Medical Records Department [address] [place] [address] Downtime Report MR#: [id number] Acct: [id number] Name: ANNETTE VILLALOBOS Rep #: [id number] : 1980 37 From: Carlos Baez PCP: Status: REG CLI This patient was seen during an EMR downtime November 20, 2017 - November 27, 2017. This patient may have a combination of paper and electronic documentation or all paper documentation. All documentation is viewable within the e-chart portion of [facility] for each patient visit. ANTIBODY SCREEN Collected: 11/24/2017 Status: F Source: [facility] 9:58 AM [facility] REPOSITORY Order Comment: PATIENT HAD RHOGRAM AT 13 WEEKS GESTATION TYPE CODE TESTS RESULT OUT OF RANGE REFERENCE UNITS LAB B100.4000 Normal Antibody NEGATIVE Screen Performed By: #### B100.4000 #### [facility] [place] [place], [address] GLUCOSE CHALLENGE GEST Collected: 11/24/2017 Status: F Source: [facility] 1H 50G 9:58 AM [facility] REPOSITORY Order Comment: RESULT(S) PREVIOUSLY REPORTED ON MANUAL REQUISITION DURING DOWNTIME. TYPE CODE TESTS RESULT OUT OF RANGE REFERENCE UNITS LAB L501.0250 70-140 mg/dL Normal GLU GEST 108 50g 1H Performed By: #### L501.0250 #### [facility] [address] [place], [address] CBC-COMPLETE BLOOD CNT Collected: 11/24/2017 Status: F Source: [facility] NO DIFF 12:00 AM [facility] REPOSITORY Order Comment: RESULT(S) PREVIOUSLY REPORTED ON MANUAL REQUISITION DURING DOWNTIME. TYPE CODE TESTS RESULT OUT OF RANGE REFERENCE UNITS LAB L100.1000 4.4-11.0 K/mm3 Normal WBC 9.6 LAB L100.1200 4.2-5.4 M/mm3 Low RBC 3.72 LAB L100.1300 12.0-15.0 g/dl Low HGB 10.5 LAB L100.1400 37-47 % Low HCT 32.3 LAB L100.1500 81-99 fL Normal MCV 86.8 LAB L100.1600 27.0-32.0 pg Normal MCH 28.2 LAB L100.1700 32-36 g/gl Normal MCHC 32.5 LAB L100.1810 11.6-14.6 % Normal RDW CV 13.9 LAB L100.1820 35.1-43.9 fl Normal RDW SD 42.5 LAB L100.1900 150-450 K/mm3 Normal PLT 230 LAB L100.2000 6.2-12.0 fl Normal MPV 8.7 Performed By: #### L100.0500 #### [facility] [address] [place], [address] URINE DRUG SCREEN Collected: 07/14/2017 Status: F Source: [facility] (VISTA) 3:28 PM [facility] REPOSITORY Order Comment: List of Drugs Taken or Suspected? UNK TYPE CODE TESTS RESULT OUT OF RANGE REFERENCE UNITS LAB L505.0075 TO BE Normal CONFIRMED Result Comment: CONFIRMATORY TESTING FOR ALL POSITIVE URINE DRUG SCREEN RESULTS WILL ONLY BE SENT OUT UPON PHYSICIAN ORDER. VISTA Urine Drug Screen methods provide only preliminary analytical test results. A more specific alternate chemical method must be used in order to obtain a confirmed analytical result. Gas chromatography/mass spectrometery (GC/MS) is the preferred confirmatory method. Clinical consideration and professional judgement should be applied to any drug of abuse test result, particularly when preliminary positive results are used. URINE TCA TESTING MUST BE ORDERED SEPARATELY. USE TEST MNEMONIC: [facility] LAB L505.5005 VISTA UDS PH 6 Normal LAB L505.5015 <1000 ng/mL AMPHETAMINES Normal NEGATIVE LAB L505.5025 < 200 ng/mL BARBITIURATES Normal NEGATIVE LAB L505.5035 < 200 ng/mL BENZODIAZIPINE Normal NEGATIVE LAB L505.5045 < 300 ng/mL COCAINE Normal NEGATIVE LAB L505.5055 < 500 ng/mL ECSTACY Normal NEGATIVE LAB L505.5065 < 300 ng/mL METHADONE Normal NEGATIVE LAB L505.5075 < 300 ng/mL OPIATES Normal NEGATIVE LAB L505.5085 < 25 ng/mL PCP Normal NEGATIVE LAB L505.5095 < 50 ng/mL THC Normal NEGATIVE Performed By: #### L505.5000, L505.6240 #### [facility] [address] [place] [place], [address] NICOTINE URINE DRUG Collected: 07/14/2017 Status: F Source: [facility] SCREEN 3:28 PM [facility] REPOSITORY Order Comment: List of Drugs Taken or Suspected? UNK TYPE CODE TESTS RESULT OUT OF RANGE REFERENCE UNITS LAB L505.6250 TO BE Normal CONFIRMED Result Comment: CONFIRMATORY TESTING FOR ALL POSITIVE URINE DRUG SCREEN RESULTS WILL ONLY BE SENT OUT UPON PHYSICIAN ORDER. The results of Urine Drug Screen methods provide only preliminary analytical test results. A more specific alternate chemical method must be used in order to obtain a confirmed analytical result. Gas chromatography/mass spectrometery (GC/MS) is the preferred confirmatory method. Clinical consideration and professional judgement should be applied to any drug of abuse test result, particularly when preliminary positive results are used. LAB L505.6270 <200 ng/mL Normal COT DRG Negative SCREEN Result Comment: Cotinine is the first-stage metabolite of Nicotine. Performed By: #### L505.5000, L505.6240 #### [facility] [address] [place], [place], [id number] URINALYSIS, ROUTINE Collected: 07/14/2017 Status: F Source: OTONIEL (DIPSTICK) 3:28 PM [facility] REPOSITORY Order Comment: How was Urine Obtained? Urine, Random TYPE CODE TESTS RESULT OUT OF RANGE REFERENCE UNITS LAB L400.3000 Yellow COLOR Normal Yellow LAB L400.3050 Clear Normal CLARITY Clear LAB L400.3200 Normal mg/dl Normal GLUCOSE, UR Normal LAB L400.3300 Negative mg/dL Normal BILIRUBIN URINE Negative LAB L400.3400 Negative mg/dl Normal KETONE UR Negative LAB L400.3465 1.002-1.030 Normal SP.GR. DIPSTX 1.020 LAB L400.3550 5.0 - 8.0 pH UR Normal 6.0 LAB L400.3600 Negative mg/dl High PROT 15 DIPSTX LAB L400.3700 Normal mg/dl Normal UROBILI Normal LAB L400.3750 Negative Normal NITRITE UR Negative LAB L400.3780 Negative /ul High 10 OCCULT BLOOD-UR LAB L400.3800 Negative /ul High LEUK ESTERASE 100 Performed By: #### L400.2010 #### [facility] [address] [place], [address] CBC W/DIFF, AUTOMATED Collected: 07/14/2017 Status: F Source: IMLER 3:28 PM [facility] REPOSITORY TYPE CODE TESTS RESULT OUT OF RANGE REFERENCE UNITS LAB L100.1000 4.4-11.0 K/mm3 Normal WBC 6.9 LAB L100.1200 4.2-5.4 M/mm3 Normal RBC 4.78 LAB L100.1300 12.0-15.0 g/dl Normal HGB 12.5 LAB L100.1400 37-47 % Normal HCT 38.5 LAB L100.1500 81-99 fL Low MCV 80.5 LAB L100.1600 27.0-32.0 pg Low MCH 26.2 LAB L100.1700 32-36 g/gl Normal MCHC 32.5 LAB L100.1810 11.6-14.6 % High RDW CV 14.7 LAB L100.1820 35.1-43.9 fl Normal RDW SD 43.3 LAB L100.1900 150-450 K/mm3 Normal PLT 218 LAB L100.2000 6.2-12.0 fl Normal MPV 8.8 LAB L100.2100 47-70 % High NEUT% 73.6 LAB L100.2200 19-41 % Normal LY% 19.8 LAB L100.2300 0-10 % Normal MONO% 5.8 LAB L100.2400 0-5 % Normal EO% 0.6 LAB L100.2500 0-1 % Normal BASO% 0.1 LAB L100.2550 0.0-0.9 % Normal IM GRAN % 0.100 Result Comment: IG% - Immature Granulocytes (promyelocytes, myelocytes and metamyelocytes) > 1% indicates that a LEFT SHIFT is Present. LAB L100.2620 2.0-7.7 X10 3/uL Normal Absolute Neut 5.1 LAB L100.2720 0.83-4.51 X10 3/ul Normal Absolute Lymph 1.36 Performed By: #### L100.0100 #### [facility] [address] [place], [place], [id number] THYROID STIM HORMONE Collected: 07/14/2017 Status: F Source: IMLER (TSH) 3:28 PM [facility] REPOSITORY TYPE CODE TESTS RESULT OUT OF RANGE REFERENCE UNITS LAB L501.9520 0.358-3.74 uIU/mL Normal TSH 0.63 Performed By: #### L501.9520 #### [facility] [place], [address] RUBELLA IGG Collected: 07/14/2017 Status: F Source: IMLER 3:28 PM [facility] REPOSITORY TYPE CODE TESTS RESULT OUT OF RANGE REFERENCE UNITS LAB L509.4000 IU/mL Normal Rubella IgG 110.8 Result Comment: Antibody results Interpretation of Immune Status < 5 IU/ml Presumed Non-immune 5 - < 10 IU/ml Equivocal > or = 10 IU/ml Presumed Immune Performed By: #### L509.4000, L3890.6005 #### [facility] [address] [place], [address] HIV - [facility] Collected: 07/14/2017 Status: F Source: IMLER 3:28 PM [facility] REPOSITORY TYPE CODE TESTS RESULT OUT OF RANGE REFERENCE UNITS LAB L3890.6005 Nonreactive Normal HIV - [facility] Non-Reactive Performed By: #### L509.4000, L3890.6005 #### [facility] [address] [place], [address] T AND S-NO Collected: 07/14/2017 Status: F Source: OTONIEL CHARGE W/PNP 3:28 PM [facility] REPOSITORY Order Comment: Reason for Type AND Screen/Red Cells: Surgery? N TYPE CODE TESTS RESULT OUT OF RANGE REFERENCE UNITS LAB B10.0800 B Normal BLOOD NEGATIVE TYPE GEL LAB B100.4050 Normal Ab SCREEN NEGATIVE GEL Performed By: #### B100.7550 #### [facility] [address] [place], [place], [id number] HEPATITIS B SURFACE Collected: 07/14/2017 Status: F Source: OTONIEL AG 3:28 PM [facility] REPOSITORY TYPE CODE TESTS RESULT OUT OF RANGE REFERENCE UNITS LAB L3100.0400 Negative Normal HB Negative SURF AG Result Comment: Performed at: [facility] Lab[address] [id number] Psychiatric Aide: Patrice Lawrence PhD, Phone: [phone] Performed By: #### L3100.0390, L3100.0625 #### [facility] (refer to report for specific site) refer to report for address and phone number HEPATITIS C ANTIBODIES Collected: 07/14/2017 Status: F Source: OTONIEL 3:28 PM [facility] REPOSITORY TYPE CODE TESTS RESULT OUT OF RANGE REFERENCE UNITS LAB L3100.0650 0.0-0.9 s/co ratio Normal HEP C AB 0.1 Result Comment: Negative: < 0.8 Indeterminate: 0.8 - 0.9 Positive: > 0.9 The CDC recommends that a positive HCV antibody result be followed up with a HCV Nucleic Acid Amplification test ([id number]). Performed By: #### L3100.0390, L3100.0625 #### [facility] (refer to report for specific site) refer to report for address and phone number RPR Collected: 07/14/2017 Status: F Source: OTONIEL 3:28 PM [facility] REPOSITORY TYPE CODE TESTS RESULT OUT OF REFERENCE UNITS RANGE LAB L700.5100 NONREACTIVE Normal RPR NONREACTIVE Performed By: #### L700.5100 #### [facility] [address] [place], [place], [address] CT/NG [facility] BY PCR Collected: 06/30/2017 Status: F Source: OTONIEL 2:50 PM [facility] REPOSITORY TYPE CODE TESTS RESULT OUT OF RANGE REFERENCE UNITS LAB L8200.2100 Negative Normal Chlam Negative Trac PCR LAB L8200.2200 Negative Normal NG by Negative PCR Performed By: #### L8200.1999 #### [facility] [address] [place], [address] PAP I-G W/RFX HRHPV Collected: 06/30/2017 Status: F Source: OTONIEL 2:50 PM [facility] REPOSITORY Order Comment: CYTOLOGY INFORMATION: - CLINICAL INFORMATION: - DATE LMP/MENOPAUSE: [id number] LMP - COLLECTION VIAL: Thin Prep Vial - 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 of containers..01 ThinPrep Vial TYPE CODE TESTS RESULT OUT OF RANGE REFERENCE UNITS LAB L7400.0800 . Normal DIAGN Comment Result Comment: NEGATIVE FOR INTRAEPITHELIAL LESION AND MALIGNANCY. LAB L7400.0900 . Normal ADEQ Comment Result Comment: Satisfactory for evaluation. Endocervical and/or squamous metaplastic cells (endocervical component) are present. LAB L7400.1400 . Normal PERFORM Comment Result Comment: Yan Zaidi, Rn Physician Office (ASCP) LAB L7400.2575 . Normal TEST METHOD Comment Result Comment: This liquid based ThinPrep(R) pap test was screened with the use of an image guided system. LAB L7400.2600 . Normal . COMM LAB L7400.2700 . Normal PAPSMR Comment Result Comment: The Pap smear is a screening test designed to aid in the detection of premalignant and malignant conditions of the uterine cervix. It is not a diagnostic procedure and should not be used as the sole means of detecting cervical cancer. Both false-positive and false-negative reports do occur. LAB L7400.2800 . Normal HPV RFLX Comment Result Comment: The HPV DNA reflex criteria were not met with this specimen result therefore, no HPV testing was performed. Performed at: [address] [id number] Psychiatric Aide: Richelle Whitten MD, Phone: [phone] Performed By: #### L7400.0350 #### [facility] (refer to report for specific site) refer to report for address and phone number ALLERGIES ALLERGIES DATE TYPE / CODE NAME / CODE REACTION SEVERITY SOURCE 02/09/2018 Drug No Known Unknown [place] [facility] Allergy/4160 Allergies/F00 [facility] [address](SNOMED [id number](RXNOR Repository CT) M) ENCOUNTERS ENCOUNTERS ADMIT/DISCHARGE ACCOUNT ADMITTING ENCOUNTER LOCATION SOURCE NUMBER CLASS 05/18/2018 [id number] Ambulatory Otoniel Otoniel 0 [facility] ing:MTRAD Repository 02/09/2018/ [id number] Kurt Rose Inpatient Otoniel Otoniel 8 4 Encounter [facility] ing:WPRoom: Repository [id number]: 1 01/19/2018 [id number] Ambulatory Otoniel [place] 4 [facility] ing:LABSPEC Repository 11/24/2017 [id number] Ambulatory Otoniel Otoniel 2 [facility] ing:WOBLAB Repository 07/14/2017 [id number] Ambulatory Otoniel Otoniel 5 [facility] ing:WOBLAB Repository 06/30/2017 [id number] Ambulatory Otoniel [place] 0 [facility] ing:LABSPEC Repository PAYERS PAYERS ENCOUNTER GUARANTOR PAYER SUBSCRIBER SOURCE 05/18/2018 ANNETTE Ragland Primary DEBBY [place] [id number] DEER Insurance:MEDICAL GIBSONDOB: [id number] [address]Iue: Number: Repository [id number] (HP) Date:3299-76-35PI[address] [address]XV: 05/18/2018 Secondary NOT GIVENUNK [place] Insurance:SELF PAY [facility] Number: Effective Repository Date:2018-05-18 02/09/2018 ANNETTE Ragland Primary Debby Otoniel [id number] DEER Insurance:MEDICAL GibsonDOB: [facility] [id number] [facility] Health Center [address]Isb: Number: Repository [id number] (HP) Date:8058-75-26MG [address] [place] [address]JN: 02/09/2018 Secondary NOT GIVENUNK [place] Insurance:SELF PAY [facility] Number: Effective Repository Date:2018-02-09 01/19/2018 Annette Primary Debby [place] [id number] DEER Insurance:MEDICAL GibsonDOB: [facility] [id number] House Health Center [address]Tzm: Number: Repository [id number] (HP) Date:1886-84-52EM [address] [address]HH: 01/19/2018 Secondary NOT GIVENUNK [place] Insurance:SELF PAY [facility] Number: Effective Repository Date:2018-01-19 11/24/2017 Annette Primary Debby Otoniel [id number] DEER Insurance:MEDICAL GibsonDOB: [facility] [id number] House Health Center [address]Ptu: Number: Repository [id number] (HP) Date:0921-32-18SS [address] [address]UB: 11/24/2017 Secondary NOT GIVENUNK [place] Insurance:SELF PAY [facility] Number: Effective Repository Date:2017-11-24 07/14/2017 Annette Primary Debby [place] [id number] DEER Insurance:MEDICAL GibsonDOB: [facility] 1976[place] [address]Tel: Number: Repository [id number] (HP) Date:[id number] [address] [address]JX: 07/14/2017 Secondary NOT GIVENUNK [place] Insurance:SELF PAY [facility] Number: Effective Repository Date:2017-07-14 06/30/2017 Annette Primary Debby Otoniel [id number] [place] Insurance:MEDICAL GibsonDOB: [facility] [id number] Number: Repository [id number]: [phone] [id number] [phone] () Date:7469-99-97CL [address], [place] [address]AN: 06/30/2017 Secondary NOT GIVENUNK [place] Insurance:SELF PAY [facility] Number: Effective Repository Date:2017-06-30
== END ==
PROVIDERS: Family Provider Family Medicine; PCP Family Medicine; Referring Provider Family Medicine; Visit Provider Family Medicine
DX: M25.531 Pain in right wrist (principal)
CPT/HCPCS: 73110

== ENCOUNTER → 2019-04-26 | Outpatient (CLI) | payer OTHER, SELFPAY ==
[2019-04-26 13:36] LABS: Anion Gap 10 (5-15); BUN 11 mg/dL (7-18); BUN/Creat Ratio 14.7 RATIO (10-20); Calcium,Total 9.1 mg/dL (8.5-10.1); Chloride 103 mmol/L (98-107); Cholesterol 128 mg/dL (200); Creatinine, Serum 0.75 mg/dL (0.55-1.02); EST Glomerular Filtration Rate 93 mL/min (>60); Est Glom Filt Rate - Afr Amer 113 mL/min (>60); Glucose 72 mg/dL (74-106); High Density Lipoprotein 67 mg/dL; Sodium Level 140 mmol/L (136-145); Triglycerides 54 mg/dL; Very Low Density Lipoprotein 11 mg/dL (5-40)
== END | disposition home or self-care (01) ==
LOC: MFPLAB 11:21
PROVIDERS: Family Provider Family Medicine; PCP Family Medicine; Referring Provider Family Medicine; Visit Provider Family Medicine
DX: I10 Essential (primary) hypertension (principal)
CPT/HCPCS: 36415; 80048; 80061